=== PATIENT | male | born 2005 | race Caucasian/White ===

== ENCOUNTER 2024-10-29 18:50 | Emergency (ER) | payer BC, SELFPAY ==
--- NOTE | ~2024-10-29 | XR_ITS ---
CLINICAL HISTORY: chest pain 2 view chest x-ray Comparison: None Findings: The lungs are clear. Normal size heart. No acute fracture. IMPRESSION: 1. No acute findings. This document has been electronically signed by: Baldomero Mcdowell MD on 10/29/2024 21:09:59
--- NOTE | 2024-10-29 18:54 | ECG_ITS ---
Test Reason : CHEST PAIN Blood Pressure : */* mmHG Vent. Rate : 57 BPM Atrial Rate : 57 BPM P-R Int : 148 ms QRS Dur : 88 ms QT Int : 394 ms P-R-T Axes : 65 60 60 degrees QTcB Int : 383 ms Sinus bradycardia with sinus arrhythmia ST elevation, consider early repolarization Borderline ECG No previous ECGs available Referred By: Karuna Asif Electronically Signed By: NATASHA HARP MD
--- NOTE | 2024-10-29 19:04 | ED_ITS ---
HPI - General Adult General Chief complaint: Chest Pain Stated complaint: Chest pain Time Seen by Provider: 10/29/24 21:22 Related Data Allergies Allergy/AdvReac Type Severity Reaction Status Date / Time No Known Allergies Allergy Verified 10/29/24 19:08 [facility] Social History Social History Advance Directives: No Advance Directives Information Provided: No Do you have a plan to hurt others: No Plan Physical Exam ED Vital Signs: BMI result Body Mass Index 25.5 Course Course Course Narrative: RME performed by Karuna Asif PA-C. Patient is a 18 year old assigned male at presenting to the emergency department with chest pain. Patient's limited physical exam performed in triage showed an individual in no acute distress. Detailed physical exam and review of systems are deferred to the turbine blade assembler. EKG, labs, imaging, and swabs ordered. Patient placed back in the waiting room pending room availability and results. Patient left the department without completing treatment. Patient left the department before myself or any of the other emergency department clinicians could explain to or review with the patient; physical exam findings, test results, need or lack there of for additional testing, need or lack there of for a procedure to be performed, need or lack there of for hospital admission / transfer, need or lack there of for prescription medication, treatment options, or a treatment plan. Medical Decision Making Lab Data 10/29/24 19:17 10/29/24 19:17 Labs: Lab Results 10/29/24 Range/Units 19:17 WBC 7.8 (4.8-10.8) X10*3/uL RBC 4.63 (4.60-5.80) X10*6/uL Hgb 14.5 (14.0-18.0) g/dl Hct 41.0 L (42.0-52.0) % MCV 88.6 (80.0-98.0) fL MCH 31.3 (27.0-33.0) pg MCHC 35.4 (31.0-36.0) g/dl RDW 12.0 (11.0-16.0) % Plt Count 272 (160-400) X10*3/uL MPV 11.2 (9.4-12.4) fL Immature Gran % (Auto) 0.3 (0.0-0.4) % Neut % (Auto) 64.5 (45-73) % Lymph % (Auto) 24.4 (20-40) % Dickey % (Auto) 8.2 (2-11) % Eos % (Auto) 1.8 (0-4) % Baso % (Auto) 0.8 (0-2) % Lymph # (Auto) 1.9 (1.2-4.9) X10*3/uL Dickey # (Auto) 0.6 (0.1-1.2) X10*3/uL Eos # (Auto) 0.1 (0.0-0.4) X10*3/uL Baso # (Auto) 0.1 (0.0-0.2) X10*3/uL Abs Immat Gran (auto) 0.02 (0.00-0.03) X10*3/uL Absolute Neuts (auto) 5.1 (2.0-8.3) x10*3/uL Absolute Nucleated RBC 0.000 (0.0-0.012) X10*3/uL Nucleated RBC % (auto) 0.0 (0.0-0.2) /100WBC Sodium 142 (135-145) mmol/L Potassium 4.6 (3.3-5.1) mmol/L Chloride 104 (96-108) mmol/L Carbon Dioxide 31 H (22-29) mmol/L Anion Gap 12 (12-20) BUN 17 H (9-16) mg/dL Creatinine 0.96 (0.5-1.4) mg/dL Estim Creat Clear Calc 130.7 Estimated GFR > 60 Random Glucose 89 (60-115) mg/dL Calcium 9.6 (8.4-10.2) mg/dL Magnesium 2.3 (1.6-2.6) mg/dL Total Bilirubin 0.3 (0.0-1.0) mg/dL AST 30 (5-37) U/L ALT 28 (0-40) U/L Alkaline Phosphatase 81 (39-117) U/L Troponin I High Sens < 2.7 (<3.5-35.0) ng/L Total Protein 7.5 (6.5-8.0) g/dL Albumin 4.7 (3.5-5.0) g/dL Lipase 15 (8-78) U/L Urine Opiates Screen Not Detected (Not Detect) Ur Buprenorphine Scrn Not Detected (Not Detect) ng/mL Ur Oxycodone Screen Not Detected (Not Detect) ng/mL Urine Methadone Screen Not Detected (Not Detect) ng/mL Urine Fentanyl Screen Not Detected (Not Detect) Ur Barbiturates Screen Not Detected (Not Detect) Ur Phencyclidine Scrn Not Detected (Not Detect) Ur Amphetamines Screen Not Detected (Not Detect) U Benzodiazepines Scrn Not Detected (Not Detect) Urine Cocaine Screen Not Detected (Not Detect) U Marijuana (THC) Screen POSITIVE H (Not Detect) Ethyl Alcohol < 10 mg/dL Influenza Type A (PCR) NEGATIVE (Negative) Influenza Type B (PCR) NEGATIVE (Negative) RSV RNA Qual (PCR) NEGATIVE (Negative) SARS-CoV-2 RNA (RT-PCR) NEGATIVE (Negative) Discharge Plan Discharge Clinical Impression: Atypical chest pain, Anxiety Patient Disposition: Home, Self-Care Instructions: Noncardiac Chest Pain (ED), Anxiety (ED) Additional Instructions: Your chest pain is atypical unlikely cardiac origin Take melatonin as advised for sleep Avoid alcohol Follow up with your PCP Interventions: ED Discharge Assessment Last Done: 10/29/24 21:57 Discharge Date/Time: 10/29/24 21:58 Print Language: Namibian
[2024-10-29 19:06] VITALS: BP 190/88; PULSE 80; RESP 20; TEMP 36.7; O2SAT 100; BMI 25.5
[2024-10-29 19:24] LABS: MANUAL DIFF FLAG NO
[2024-10-29 19:25] LABS: Basophils Absolute Auto 0.1 X10*3/uL (0.0-0.2); Basophils Percent Auto 0.8 % (0-2); Eosinophils Absolute Auto 0.1 X10*3/uL (0.0-0.4); Eosinophils Percent Auto 1.8 % (0-4); Hemoglobin 14.5 g/dl (14.0-18.0); Imm Gran Abs Auto 0.02 X10*3/uL (0.00-0.03); Imm Gran Pct Auto 0.3 % (0.0-0.4); Lymphocytes Absolute Auto 1.9 X10*3/uL (1.2-4.9); Lymphocytes Percent Auto 24.4 % (20-40); Mean Corpuscular HGB Conc 35.4 g/dl (31.0-36.0); Mean Corpuscular Hemoglobin 31.3 pg (27.0-33.0); Mean Corpuscular Volume 88.6 fL (80.0-98.0); Mean Platelet Volume 11.2 fL (9.4-12.4); Monocytes Absolute Auto 0.6 X10*3/uL (0.1-1.2); Monocytes Percent Auto 8.2 % (2-11); Neutrophils Absolute Auto 5.1 x10*3/uL (2.0-8.3); Neutrophils Percent Auto 64.5 % (45-73); Platelet Count 272 X10*3/uL (160-400); Red Blood Count 4.63 X10*6/uL (4.60-5.80); White Blood Count 7.8 X10*3/uL (4.8-10.8)
[2024-10-29 19:35] LABS: Amphetamine Screen Urine Not Detected (Not Detect); Barbiturates, Urine Not Detected (Not Detect); Benzodiazepines Screen Urine Not Detected (Not Detect); Buprenorphine Scr Not Detected (Not Detect); Cannabinoid Screen Urine POSITIVE (Not Detect); Cocaine Screen Urine Not Detected (Not Detect); Fentanyl, urine Not Detected (Not Detect); Methadone Screen, Urine Not Detected (Not Detect); Opiate Screen Urine Not Detected (Not Detect); Oxycodone Screen Urine Not Detected (Not Detect); Phencyclidine Screen Urine Not Detected (Not Detect)
[2024-10-29 19:39] LABS: Alanine Aminotransferase 28 U/L (0-40); Albumin Level 4.7 g/dL (3.5-5.0); Alkaline Phosphatase 81 U/L (39-117); Anion Gap 12 (12-20); Aspartate Amino Transferase 30 U/L (5-37); Bilirubin Total 0.3 mg/dL (0.0-1.0); Blood Urea Nitrogen 17 mg/dL (9-16); Calcium 9.6 mg/dL (8.4-10.2); Carbon Dioxide 31 mmol/L (22-29); Chloride 104 mmol/L (96-108); Creatinine Clr Calc Pharmacy 130.7; Estimated Glomerular Filt Rate > 60; Ethanol < 10 mg/dL; Glucose Random 89 mg/dL (60-115); Lipase 15 U/L (8-78); Magnesium 2.3 mg/dL (1.6-2.6); Potassium 4.6 mmol/L (3.3-5.1); Sodium 142 mmol/L (135-145); Total Protein 7.5 g/dL (6.5-8.0)
[2024-10-29 19:49] LABS: Troponin-I High Sensitivity < 2.7 ng/L (<3.5-35.0)
[2024-10-29 20:01] LABS: Influenza A PCR NEGATIVE (Negative); Influenza B PCR NEGATIVE (Negative); Resp Syncy Virus RNA Qual PCR NEGATIVE (Negative); SARS COV2 PCR INHOUSE NEGATIVE (Negative)
--- OUTSIDE RECORDS SUMMARY | 2024-10-29 21:12 | XMS_ITS | Clinical Summary ---
Author Organization [facility] [employer] Address [address] [facility] [place] [address] Care Team Providers Care Timber Framer Name Role Phone Pcp, No Primary Care Provider [phone] Allergies No known active allergies Medications ibuprofen (ADVIL) 200 MG tablet Take 1-2 tablets (200-400 mg total) by mouth every 6 (six) hours as needed for headaches for up to 7 days Do not exceed 1200 mg per day 5 11/02/19 25 Active promethazine (PHENERGAN) 25 MG tablet Take 0.5-1 tablets (12.5-25 mg total) by mouth every 6 (six) hours as needed for nausea for up to 2 days 8 tablet 5 10/28/19 25 Encounters Date Type Department Care Team Description 10/25/2024 3:30 PM EDT Office Visit [facility] [address] [place] [address] Jaqueline Zhu NP Acute nonintractable headache, unspecified headache type (Primary Dx) from Last 3 Months Social History Tobacco Use Types Packs/Day Years Used Date Smoking Tobacco: Never Smokeless Tobacco: Never Tobacco Cessation:Counseling Given: Not Answered Sex and Gender Information Value Date Recorded Sex Assigned at Not on file Legal Sex Male 3:23 PM EDT Gender Identity Not on file Sexual Orientation Not on file Last Filed Vital Signs Vital Sign Reading Time Taken Comments Blood Pressure 132/84 10/25/2024 3:47 PM EDT Pulse 66 10/25/2024 3:47 PM EDT Temperature 36.8 ??C (98.2 ??F) 10/25/2024 3:29 PM ED T Respiratory Rate - - Oxygen Saturation - - Inhaled Oxygen Concentration - - Weight - - Height - - Body Mass Index - - Plan of Treatment Health Maintenance Due Date Last Done Comments Depression: Screening Annual ly using PHQ-2/9 in Adults 18 yrs or above (or HM Modifier)([facility]) 11/12/2021 Hepatitis C Virus Infection in Adolescents and Adults: Screening (or Modifier) ([facility]) 11/12/2021 Hypertension Screening: Adul ts age 18 yrs or older without known hypertension ([facility]) 11/12/2021 SDOH Screening Reminder: Keyla griggs for all adults ([facility]) 11/12/2021 DTaP/Tdap/Td Vaccines ([facility]) (1 - Tdap) 11/12/2022 Lipid Screening: Once for Me n aged 20 to 35 yrs ([facility]) 2023 COVID-19 Vaccine Screening: Initial Series and Booster Status ([facility]) ( - season) 2024 Flu Vaccination: Yearly for ages 18mos through 64 years (or Modifier)([facility]) 01/19/2025 Zoster/Shingles Vaccine Seri es Screening: Adults aged 18+ yrs (or HM Modifiers)([facility]) (1 of 2) 11/12/2053 Pneumococcal Vaccination Screening: Pts 0-19 & 19-49 yrs of age ([facility]) Aged Out No longer eligible b ased on patient's age to complete this topic Medical Devices Not on file Care Teams Timber Framer Relationship Specialty Start Date End Date Pcp, No PCP - General Family Medicine 10/25/24
--- OUTSIDE RECORDS SUMMARY | 2024-10-29 21:12 | XMS_ITS | Encounter Summary ---
Author Organization [id number] [facility] [employer] Address [address] [place] [address] Care Team Providers Care Nuclear Monitoring Technician Name Role Phone Pcp, No Primary Care Provider [phone] Reason for Visit * Reason Comments Neurology Encounter Details Date Type Department Care Team (Late st Contact Info) Description 10/25/2024 3:30 PM EDT Office Visit [id number] [address] [place] [address] [place] [address] Jaqueline Zhu NP [address] [place] [address] [place] [id number] Acute nonintractable headache, unspecified headache type (Primary Dx) Social History Tobacco Use Types Packs/Day Years Used Date Smoking Tobacco: Never Smokeless Tobacco: Never Tobacco Cessation:Counseling Given: Not Answered Sex and Gender Information Value Date Recorded Sex Assigned at Not on file Legal Sex Male 3:23 PM EDT Gender Identity Not on file Sexual Orientation Not on file documented as of this encounter Last Filed Vital Signs Vital Sign Reading Time Taken Comments Blood Pressure 132/84 10/25/2024 3:47 PM EDT Pulse 66 10/25/2024 3:47 PM EDT Temperature 36.8 ??C (98.2 ??F) 10/25/2024 3:29 PM ED T Respiratory Rate - - Oxygen Saturation - - Inhaled Oxygen Concentration - - Weight - - Height - - Body Mass Index - - documented in this encounter Functional Status * Is the person deaf or does he/she have serious difficulty hearing? Answer Date of Assessment Author * Is this person blind or does he/she have serious difficulty seeing even when wearing glasses? Answer Date of Assessment Author * Does this person have serious difficulty walking or climbing stairs? Answer Date of Assessment Author * Does this person have difficulty dressing or bathing? Answer Date of Assessment Author * Because of a physical, mental, or emotional condition, does this person have difficulty doing errands alone such as visiting a doctor's office or shopping? Answer Date of Assessment Author documented as of this encounter Mental Status * Because of a physical, mental, or emotional condition, does this person have serious difficulty concentrating, remembering, or making decisions? Answer Entry Date Author documented in this encounter Patient Instructions * Patient Instructions* Jaqueline Zhu NP - 10/25/2024 3:30 PM EDT Your blood pressure is elevated today. Please return to [facility] or your Primary Healthcare Provider for a repeat measurement within 3-5 days. If you are taking medication to lower your blood pressure continue with your treatment plan. Seek immediate emergency medical attention: Seek immediate emergency medical attention for changes in vision, eye pain, sensitivity to light, increased drainage, difficulty swallowing, stiff neck, shortness of breath, coughing up blood, chest pain or increased fever. Follow up PCP: Follow up PCP if headache persists after initial treatment or sooner if headache worsens. If you are taking over-the counter medication(s): If you are taking over-the counter medication(s) follow the dosing instructions included in the packaging, unless otherwise instructed by your provider It is important to notify your primary care provider: It is important to notify your primary care provider of all medications you are taking, including [id number] medications. Following certain behaviors may help with headache frequency and severity. Things like practicing good sleep hygiene, eating regular healthy meals, exercising, avoiding migraine triggers can all helpyou experience less migraines. Learn to recognize changes in the patterns of your headache. A change in the migraine attack frequency or severity could mean there is something more serious occuring. Headaches with fevers, chills, night sweats or muscle pain, or new headaches that develop with weight loss or are red flags. Seek emergency care if you experience any confusion, double vision, ringing in the ears, a stiffneck or weakness on one side of the body. documented in this encounter Progress Notes * Jaqueline Zhu NP - 10/25/2024 3:30 PM EDT Subjective Patient ID: Rick Dennis is a 18 y.o. male. Chief Complaint Patient presents with Neurology HPI Dizziness and pressure in head, drank alcohol for first time in a while this weekend. Headache around eye and around neck. Trouble sleeping stayed up two nights in a row, tachycaria. Migraines. History of anxiety Neurology Deficits/symptoms present: Balance disturbance History of falls: None Transfers: Independent Duration: 3 days Frequency: Constant Symptoms worsened by: Bright lights Treatments tried: OTC medication (ibuprofen) Response to treatement: Mild improvement Review of Systems Neurological: Positive for dizziness. Social History Tobacco Use Smoking Status Never Smokeless Tobacco Never Past Medical History: Diagnosis Date Anxiety History reviewed. No pertinent surgical history. History reviewed. No pertinent family history. Objective Physical Exam Constitutional: General: He is not in acute distress. Appearance: He is well-developed. HENT: Head: Normocephalic and atraumatic. Right Ear: Tympanic membrane, ear canal and external ear normal. Left Ear: Tympanic membrane, ear canal and external ear normal. Nose: Nose normal. No congestion or rhinorrhea. Right Turbinates: Enlarged. Left Turbinates: Enlarged. Right Sinus: No maxillary sinus tenderness or frontal sinus tenderness. Left Sinus: No maxillary sinus tenderness or frontal sinus tenderness. Mouth/Throat: Mouth: Mucous membranes are moist. Pharynx: Oropharynx is clear. No oropharyngeal exudate or posterior oropharyngeal erythema. Tonsils: No tonsillar exudate. 0 on the right. 0 on the left. Eyes: Extraocular Movements: Extraocular movements intact. Pupils: Pupils are equal, round, and reactive to light. Cardiovascular: Rate and Rhythm: Normal rate and regular rhythm. Pulmonary: Effort: Pulmonary effort is normal. Breath sounds: Normal breath sounds. Lymphadenopathy: Cervical: No cervical adenopathy. Neurological: Mental Status: He is alert and oriented to person, place, and time. Assessment HPI provided by Self Based on today's visit:history and physical exam only, as no relevant testing deemed necessary patient's visit diagnosis is/includes 1. Acute nonintractable headache, unspecified headache type Patient does not have a history of chronic conditions. Treatment plan includes: Plan Orders Placed: No orders of the defined types were placed in this encounter. Medications ordered this visit Signed Prescriptions Disp Refills promethazine (PHENERGAN) 25 MG tablet 8 tablet 0 Sig: Take 0.5-1 tablets (12.5-25 mg total) by mouth every 6 (six) hours as needed for nausea for upto 2 days ibuprofen (ADVIL) 200 MG tablet Sig: Take 1-2 tablets (200-400 mg total) by mouth every 6 (six) hours as needed for headaches for up to 7 days Do not exceed 1200 mg per day Current medication list and any new medications prescribed or recommended today were reviewed with the patient and specific instructions were provided Yes Provider Recommendations Drink fluids, drink electrolytes and water, avoid caffeine. Try to get sleep Follow up care instructions were provided and reviewed?with the Patient. All questions were answered. Patient verbalized understanding of plan of care today. documented in this encounter Plan of Treatment Not on file documented as of this encounter Visit Diagnoses Diagnosis Acute nonintractable headache, unspecified headache type- Primary documented in this encounter Care Teams Nuclear Monitoring Technician Relationship Specialty Start Date End Date Pcp, No PCP - General Family Medicine 10/25/24 documented as of this encounter
--- OUTSIDE RECORDS SUMMARY | 2024-10-29 21:12 | XMS_ITS | Clinical Summary ---
Author Organization [facility] Address [address] [place] [address] Care Team Providers Care Sterilisation Technician Name Role Phone Steph Rodriges MD Primary Care Provider [phone] Allergies No known active allergies Social History Tobacco Use Types Packs/Day Years Used Date Smoking Tobacco: Never Assessed Sex and Gender Information Value Date Recorded Sex Assigned at Male 05/06/2019 10:38 AM EST Legal Sex Male 1:35 AM EST Gender Identity Male 05/06/2019 10:38 AM EST Sexual Orientation Not on file Last Filed Vital Signs Vital Sign Reading Time Taken Comments Blood Pressure 144/90 05/06/2019 10:37 AM EST Pulse 66 05/06/2019 10:35 AM EST Temperature 36.6 ??C (97.8 ??F) 05/06/2019 10:[address] Respiratory Rate 18 05/06/2019 10:35 AM EST Oxygen Saturation 99% 05/06/2019 10:35 AM EST Inhaled Oxygen Concentration - - Weight 74.9 kg (165 lb 2 oz) 05/06/2019 10:35 AM EST Height 180.3 cm (5' 11 ) 05/06/2019 10:35 AM EST Body Mass Index 23.03 05/06/2019 10:35 AM EST Plan of Treatment Not on file Insurance [facility] [employer] Address: .[facility] [id number] [place] [address] [employer] Address: .[facility] [id number] [place] [address] Care Teams Sterilisation Technician Relationship Specialty Start Date End Date Steph Rodriges MD [address] [place] [address] PCP - General Pediatric Medicine 01/07/18
[2024-10-29 21:14] VITALS: BP 145/60; PULSE 70; RESP 18; TEMP 36.7; O2SAT 96
--- NOTE | 2024-10-29 21:18 | MHC.EDTECH ---
assumed care of pt changed over the pt into a hospital gown and placed on the security monitor. VS taken and stable
[2024-10-29 21:57] VITALS: BP 145/60; PULSE 70; RESP 18; TEMP 36.7; O2SAT 96
== END 2024-10-29 21:58 | disposition home or self-care (01) ==
PROVIDERS: Physician Assistant Medical; Emergency Provider Internal Medicine
DX: R07.89 Other chest pain (principal); F41.9 Anxiety disorder, unspecified; Z51.81 Encounter for therapeutic drug level monitoring; Z79.899 Other long term (current) drug therapy; Z03.818 Encounter for observation for suspected exposure to other biological agents ruled out
CPT/HCPCS: 0241U; 36415; 71046; 80053; 80307; 83690; 83735; 84484; 85025; 93005; 99283; 99284

== ENCOUNTER → 2024-10-29 18:54 | Outpatient (BNV) | payer BC, SELFPAY | PROVIDERS: Emergency Provider Internal Medicine; Visit Provider Internal Medicine Cardiovascular Disease | DX: R07.9 Chest pain, unspecified (principal) | CPT/HCPCS: 93010 ==

== ENCOUNTER → 2024-10-29 19:06 | Outpatient (BNV) | payer BC, SELFPAY | PROVIDERS: Emergency Provider Internal Medicine; Visit Provider Student in an Organized Health Care Education/Training Program | DX: R07.9 Chest pain, unspecified (principal) | CPT/HCPCS: 71046 ==